=== PATIENT | male | born 1980 | race African-American/Black ===

== ENCOUNTER 2022-03-14 14:07 | Emergency (ER) | payer OTHER ==
[~2022-03-14] VITALS: Ht 190.5 cm; Wt 91.6 kg
[2022-03-14] MEDS ORDERED: CARB15DR63 EACH EAR (14:29)
== END 2022-03-14 14:48 | disposition home or self-care (01) ==
LOC: ER 14:07
DX: H61.21 Impacted cerumen, right ear (principal)
CPT/HCPCS: A4663